=== PATIENT | male | born 1935 ===

== ENCOUNTER 2017-10-01 10:03 | Emergency (ER) | payer MEDICARE, OTHER ==
--- NOTE | 2017-10-01 10:13 | EDM.PDOC ---
ED HPI GENERAL MEDICAL PROBLEM - General Chief Complaint: Abdominal Pain Stated Complaint: SENT FROM [facility] Time Seen by Provider: 10/01/17 10:10 Source of Information: Reports: Patient History Limitations: Reports: No Limitations - History of Present Illness INITIAL COMMENTS - FREE TEXT/NARRATIVE: 81-year-old male presents to the ED with diffuse abdominal pain. He states he went to the clinic and [facility] yesterday because of abdominal pain and development of diarrhea. He had lab work carried out which did not become available to his practitioner Yvrose Pink until this morning. It identified a markedly elevated lipase of greater than 4700. Patient has had previous cholecystectomy and he drinks no alcohol. Concern therefore is from medication as a cause. He has not had any trauma to his abdomen to precipitate pancreatitis. To his knowledge never had hepatitis in the past. Denies any nausea vomiting in fact he's been able to eat fairly normally. Had only a banana however this morning. Diarrhea quit after taking one tablet of lumbar to yesterday. He has a history of antibiotic-induced colitis with C. difficile enteritis about 18 months ago. Patient is developing worsening dementia over the last year and recently had Namenda added to his treatment plan. Onset: Sudden Onset Date: 09/30/17 (Develop suddenly yesterday.) Onset Time: 07:00 Duration: Hour(s): Location: Reports: Abdomen (Upper abdomen above the umbilicus more in the epigastrium. Seems to radiate mildly through to his back.) Quality: Reports: Ache Severity: Moderate (H his pain as a 2 out of 10) Improves with: Reports: None Worsens with: Reports: Eating Context: Denies: Activity, Exercise, Lifting, Sick Contact, Trauma, Other Associated Symptoms: Reports: Cough, Loss of Appetite, Malaise. Denies: cough w sputum (Mild nonproductive cough), Diaphoresis, Fever/Chills, Headaches, Nausea/Vomiting, Rash, Seizure, Shortness of Breath, Syncope Treatments [employer]: Reports: Other (see below) (Only has normal medications.) - Related Data Allergies Allergy/AdvReac Type Severity Reaction Status Date / Time No Known Allergies Allergy Verified 10/01/17 10:09 Home Meds: Home Meds Multivitamin [Multivitamins] 1 tab PO DAILY 04/01/16 [History] Donepezil HCl [Aricept] 10 mg PO DAILY 10/01/17 [History] Memantine [Namenda] 5 mg PO DAILY 10/01/17 [History] Sertraline [Zoloft] 50 mg PO DAILY 10/01/17 [History] Past Medical History HEENT History: Reports: Impaired Vision Cardiovascular History: Reports: Other (See Below) Other Cardiovascular History: suppose to be evaluated for arthrosclerosis in [place] Dr. Enriquez for his Echo reading. on April 19 2016 Respiratory History: Reports: None Gastrointestinal History: Reports: Cholelithiasis Genitourinary History: Reports: None Musculoskeletal History: Reports: Other (See Below) Other Musculoskeletal History: elbow surgery after injury when younger Left elbow; hardware present Neurological History: Reports: None - Past Surgical History Musculoskeletal Surgical History: Reports: Other (See Below) Social & Family History - Family History Family Medical History: Noncontributory - Tobacco Use Smoking Status *Q: Never Smoker Second Hand Smoke Exposure: No - Caffeine Use Caffeine Use: Reports: None - Recreational Drug Use Recreational Drug Use: No - Living Situation & Occupation Living situation: Reports: , with Spouse Occupation: Retired ED ROS GENERAL - Review of Systems Review Of Systems: See Below Constitutional: Reports: Malaise, Fatigue, Decreased Appetite (States he lost 1 pound since his last visit to the doctor), Weight Loss. Denies: Fever, Chills HEENT: Reports: No Symptoms Respiratory: Reports: Shortness of Breath Cardiovascular: Reports: Dyspnea on Exertion (Chronically). Denies: Blood Pressure Problem, Claudication, Lightheadedness, Orthopnea Endocrine: Reports: Fatigue GI/Abdominal: Reports: Abdominal Pain, Decreased Appetite (History of present illness), Other (Normal stool today without blood.). Denies: Difficulty Swallowing, Distension, Flatus, Hematemesis, Hematochezia, Melena : Reports: Frequency, Other Musculoskeletal: Reports: Back Pain, Joint Pain (Knees hips and lower back at times) Skin: Reports: No Symptoms Neurological: Reports: No Symptoms Psychiatric: Reports: No Symptoms ED EXAM, GI/ABD - Physical Exam Exam: See Below Exam Limited By: No Limitations General Appearance: Alert, WD/WN, No Apparent Distress, Other (He answers all questions quite appropriately with no signs of confusion or short-term memory impairment.) Eyes: Bilateral: Normal Appearance (No jaundice.) Ears: Normal TMs Throat/Mouth: Normal Inspection, Normal Lips, Normal Oropharynx Head: Atraumatic, Normocephalic Neck: Normal Inspection, Supple, Non-Tender, Full Range of Motion. No: Lymphadenopathy (L), Lymphadenopathy (R) Respiratory/Chest: No Accessory Muscle Use, Chest Non-Tender, Respiratory Distress, Decreased Breath Sounds. No: Rales, Rhonchi, Wheezing Cardiovascular: Regular Rate, Rhythm, No Edema, No Gallop, No Murmur, No Rub. No: Normal Peripheral Pulses GI/Abdominal Exam: Normal Bowel Sounds, Soft, Non-Tender, No Organomegaly, No Mass, Pelvis Stable, Tender. No: Guarding, Rigid, Rebound Back Exam: Normal Inspection, Full Range of Motion. No: CVA Tenderness (L), CVA Tenderness (R) Extremities: Normal Inspection, Normal Range of Motion, Non-Tender, No Pedal Edema Neurological: Alert, Oriented, CN II-XII Intact, Normal Cognition Psychiatric: Normal Affect, Normal Mood Skin Exam: Warm, Dry, Intact, Normal Color, No Rash EKG INTERPRETATION EKG Date: 10/01/17 Time: 10:25 Rhythm: NSR Rate (Beats/Min): 61 [place]: Normal P-Wave: Present QRS: Other (Mildly decreased voltage in the limb leads.) ST-T: Other QT: Prolonged (QT is mildly prolonged.) EKG Interpretation Comments: Borderline ECG Course - Vital Signs Last Recorded V/S: Last Vital Signs Temp 36.3 C 10/01/17 10:16 Pulse 67 10/01/17 10:16 Resp 19 10/01/17 10:16 BP 133/75 10/01/17 10:16 Pulse Ox 99 10/01/17 10:16 - Orders/Labs/Meds Orders: Active Orders 24 hr Category Date Time Status EKG Documentation Completion [RC] STAT Care 10/01/17 10:11 Active Chest 1V Frontal [CR] Stat Exams 10/01/17 10:11 Taken Dextrose 5%-0.9% NaCl [Dextrose 5%-Normal Saline] 1,000 Med 10/01/17 10:15 Active ml IV ASDIRECTED Sodium Chloride 0.9% [Saline Flush] Med 10/01/17 12:46 Active 10 ml FLUSH ONETIME PRN Medication Orders Dextrose/Sodium Chloride (Dextrose 5%-Normal Saline) 1,000 mls @ 250 mls/hr IV ASDIRECTED JEREMIAH Last Admin: 10/01/17 10:49 Dose: 250 mls/hr Sodium Chloride (Saline Flush) 10 ml FLUSH ONETIME PRN PRN Reason: Keep Vein Open Last Admin: 10/01/17 13:00 Dose: 10 ml Labs: Laboratory Tests 10/01/17 10/01/17 10/01/17 Range/Units 10:30 10:30 10:30 WBC 8.23 (4.23-9.07) K/mm3 RBC 4.83 (4.63-6.08) M/mm3 Hgb 15.2 (13.7-17.5) gm/L Hct 43.5 (40.1-51.0) % MCV 90.1 (79.0-92.2) fl MCH 31.5 (25.7-32.2) pg MCHC 34.9 (32.2-35.5) g/dl RDW Std Deviation 42.4 (35.1-43.9) fL Plt Count 195 (163-337) K/mm3 MPV 9.5 (9.4-12.3) fl Neutrophils % (Manual) 77 H (40-60) % Band Neutrophils % 0 (0-10) % Lymphocytes % (Manual) 17 L (20-40) % Atypical Lymphs % 0 % Monocytes % (Manual) 5 (2-10) % Eosinophils % (Manual) 1 (0.8-7.0) % Basophils % (Manual) 0 L (0.2-1.2) Platelet Estimate Adequate Plt Morphology Comment Normal RBC Morph Comment Normal PT 11.3 (8.0-13.0) SECONDS INR 1.06 APTT 29 (22-36) SECONDS Sodium 140 (136-145) mEq/L Potassium 4.0 (3.5-5.1) mEq/L Chloride 104 (98-107) mEq/L Carbon Dioxide 26 (21-32) mEq/L Anion Gap 14.0 (5-15) BUN 26 H (7-18) mg/dL Creatinine 1.1 (0.7-1.3) mg/dL Est Cr Clr Drug Dosing 58.00 mL/min Estimated GFR (MDRD) > 60 (>60) mL/min BUN/Creatinine Ratio 23.6 H (14-18) Glucose 96 (83-115) mg/dL Calcium 9.1 (8.5-10.1) mg/dL Magnesium 2.1 (1.8-2.4) mg/dl Total Bilirubin 1.8 H (0.2-1.0) mg/dL GGT (15-85) U/L AST 66 H (15-37) U/L ALT 100 H (16-63) U/L Alkaline Phosphatase 112 (46-116) U/L CK-MB (CK-2) 1.4 (0-3.6) ng/ml Troponin I < 0.017 (0.00-0.056) ng/mL C-Reactive Protein 0.9 (<1.0) mg/dL NT-Pro-B Natriuret Pep (0-450) pg/mL Total Protein 7.2 (6.4-8.2) g/dl Albumin 3.8 (3.4-5.0) g/dl Globulin 3.4 gm/dL Albumin/Globulin Ratio 1.1 (1-2) Lipase 182 (73-393) U/L 10/01/17 10/01/17 Range/Units 10:30 10:30 WBC (4.23-9.07) K/mm3 RBC (4.63-6.08) M/mm3 Hgb (13.7-17.5) gm/L Hct (40.1-51.0) % MCV (79.0-92.2) fl MCH (25.7-32.2) pg MCHC (32.2-35.5) g/dl RDW Std Deviation (35.1-43.9) fL Plt Count (163-337) K/mm3 MPV (9.4-12.3) fl Neutrophils % (Manual) (40-60) % Band Neutrophils % (0-10) % Lymphocytes % (Manual) (20-40) % Atypical Lymphs % % Monocytes % (Manual) (2-10) % Eosinophils % (Manual) (0.8-7.0) % Basophils % (Manual) (0.2-1.2) Platelet Estimate Plt Morphology Comment RBC Morph Comment PT (8.0-13.0) SECONDS INR APTT (22-36) SECONDS Sodium (136-145) mEq/L Potassium (3.5-5.1) mEq/L Chloride (98-107) mEq/L Carbon Dioxide (21-32) mEq/L Anion Gap (5-15) BUN (7-18) mg/dL Creatinine (0.7-1.3) mg/dL Est Cr Clr Drug Dosing mL/min Estimated GFR (MDRD) (>60) mL/min BUN/Creatinine Ratio (14-18) Glucose (83-115) mg/dL Calcium (8.5-10.1) mg/dL Magnesium (1.8-2.4) mg/dl Total Bilirubin (0.2-1.0) mg/dL GGT 113 H (15-85) U/L AST (15-37) U/L ALT (16-63) U/L Alkaline Phosphatase (46-116) U/L CK-MB (CK-2) (0-3.6) ng/ml Troponin I (0.00-0.056) ng/mL C-Reactive Protein (<1.0) mg/dL NT-Pro-B Natriuret Pep 106 (0-450) pg/mL Total Protein (6.4-8.2) g/dl Albumin (3.4-5.0) g/dl Globulin gm/dL Albumin/Globulin Ratio (1-2) Lipase (73-393) U/L Meds: Medications Generic Name Dose Route Start Last Admin Trade Name Freq PRN Reason Stop Dose Admin Dextrose/Sodium Chloride 1,000 mls @ 250 mls/hr 10/01/17 10:15 10/01/17 10:49 Dextrose 5%-Normal Saline IV 250 mls/hr ASDIRECTED JEREMIAH Administration Sodium Chloride 10 ml 10/01/17 12:46 10/01/17 13:00 Saline Flush FLUSH 10 ml ONETIME PRN Administration Keep Vein Open Discontinued Medications Generic Name Dose Route Start Last Admin Trade Name Freq PRN Reason Stop Dose Admin Hydromorphone HCl 0.5 mg 10/01/17 10:49 10/01/17 11:28 Dilaudid IVPUSH 10/01/17 10:50 0.5 mg ONETIME ONE Administration Iopamidol 100 ml 10/01/17 12:47 10/01/17 13:00 Isovue-370 (76%) IVPUSH 10/01/17 12:48 100 ml ONETIME ONE Administration Metoclopramide HCl 5 mg 10/01/17 10:49 10/01/17 11:20 Reglan IVPUSH 10/01/17 10:50 5 mg ONETIME ONE Administration - Radiology Interpretation Free Text/Narrative:: 81-year-old male presents to the ED for evaluation of abdominal pain with associated diarrhea that developed yesterday morning. He was seen in the clinic by Paulette Suh in [facility] yesterday and had lab workup. All the labs are not available to her until this morning. Apparently identified and elevated lipase at 4750 this reason she contacted him and told him that he needs to come to [place] for definitive management and care. There is no reason for him to have developed acute pancreatitis. He has had previous cholecystectomy and he does not drink alcohol. No recent abdominal trauma. 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 Plan routine labs to be repeated. IV will be D5 normal saline at 150 mils per hour. Given Dilaudid 0.5 mg IV for pain relief with Reglan 5 mg IV for nausea relief. - Re-Assessments/Exams Free Text/Narrative Re-Assessment/Exam: 10/01/17 11:39 Labs are back revealing a white count of 8.23. Hemoglobin is 15.2 hematocrit is 43.5. Platelet count is 195,000. Differential is 77% neutrophils and no bands reported. PT is 11.3 with an INR 1.06. PTT is 29. Sodium is 140 with a potassium of 4.0. Chloride 104 with a bicarbonate of 26. And a gap is 14.0. BUN was 26 with a creatinine of 1.1. Glucose is 96. Calcium 9.1. Magnesium 2.1. Total bilirubin is elevated at 1.8. AST is 66 with an ALT of 100. Alk phosphatase is 112. CK-MB fraction 1.4. Troponin I is less than 0.017. C-reactive protein is 0.9. BNP is normal at 106. Lipase is normal today at 182. A GGT will be ordered. 10/01/17 13:47 CT scan of the abdomen was done with IV contrast only. Findings essentially are unchanged from previous CT done on April 01. There are intrahepatic and extrahepatic biliary duct dilation dictation this finding was noted on previous exam of the common bile duct measures about 1.1 cm in size which also appears fairly stable from previous exam surgical clips are evident from previous cholecystectomy pancreas shows no discrete abnormality. The liver shows no focal parenchymal abnormality spleen appears to be normal kidneys show symmetric contrast enhancement without hydronephrosis or mass. Several minimal cysts are seen within left kidney which are stable from previous exam. Aorta shows diffuse atherosclerotic change without aneurysmal dilatation. Atherosclerotic change continues down into the common iliac vessels. No retroperitoneal adenopathy or mesenteric abnormalities are seen. No pelvic mass or adenopathy is seen. Bone window settings reviewed stable compression deformity within the lumbar to vertebra. Diffuse degenerative changes again which appear previous similar to previous study. Patient will be therefore discharged to home. I will have him have repeat labs done at the clinic in [place] on Tuesday in regards to his liver function making sure that his bilirubin returns to normal. Note the GGT was 113 which is minimally elevated with normal being up to 85 lab. Patient will be discharged to home. I will have him follow- up in [place] clinic on Tuesday or Tuesday for repeat liver function studies to make sure that his bilirubin and transaminases returned to normal values. Departure - Departure Time of Disposition: 13:54 Disposition: Home, Self-Care 01 Condition: Fair Clinical Impression: Abdominal pain Qualifiers: Abdominal location: left upper quadrant Qualified Code(s): R10.12 - Left upper quadrant pain - Discharge Information Referrals: Ellyn Pink PA-C [Primary Care Provider] - Forms: ED Department Discharge Additional Instructions: Evaluation the emergent today in regards to abnormal blood tests identified at [facility] yesterday. When Yvrose did do lab work portably was looking at your pancreas and the lipase returned this morning markedly elevated at 103, 000. If I'm not mistaken I was told 4700. She therefore contacted you to come to the ED for further evaluation. As you discussed you did have diffuse left upper quadrant and epigastric abdominal pain when he went to see her for this subsequently has resolved. He also had short-lived diarrhea again this appears to have resolved. Gallbladder has been previously removed. Lab work done today revealed some slight elevation of the liver enzymes and a bilirubin of 1.8. These numbers are mildly elevated suggesting possibility of passage of sludge or stone yesterday. The pancreas enzyme came back in the normal range at 182. Therefore there is no evidence of pancreatitis at this time. CT of the abdomen and pelvis was performed to make sure there was no other pathology around the head of the pancreas or involvement of the common bile duct which drains the liver and pancreas. And compared to one done in March 2016 is unchanged. No abnormalities were identified within the liver, bile duct or the pancreas itself. I would like you to check in with Yvrose next week on Tuesday or Tuesday to have repeat lab tests done mostly in regards to liver function make sure that it is returned to normal status. You're free to eat and drink whatever you please at this time and to continue all current medications. - My Orders Last 24 Hours: My Active Orders 10/01/17 10:11 EKG Documentation Completion [RC] STAT Chest 1V Frontal [CR] Stat 10/01/17 10:15 Dextrose 5%-0.9% NaCl [Dextrose 5%-Normal Saline] 1,000 ml IV ASDIRECTED 10/01/17 12:46 Sodium Chloride 0.9% [Saline Flush] 10 ml FLUSH ONETIME PRN - Assessment/Plan Last 24 Hours: My Active Orders 10/01/17 10:11 EKG Documentation Completion [RC] STAT Chest 1V Frontal [CR] Stat 10/01/17 10:15 Dextrose 5%-0.9% NaCl [Dextrose 5%-Normal Saline] 1,000 ml IV ASDIRECTED 10/01/17 12:46 Sodium Chloride 0.9% [Saline Flush] 10 ml FLUSH ONETIME PRN
[2017-10-01] MEDS ORDERED: Dextrose 5%-0.9% NaCl 1,000 ML IV SCH (10:15)
[2017-10-01 10:20] VITALS: BP 133/75
[2017-10-01] MEDS ORDERED: Metoclopramide 10 MG/2 ML SDV IVPUSH ONE (10:49)
[2017-10-01] MEDS ORDERED: HYDROmorphone 0.5 MG/0.5 ML SYRINGE IVPUSH ONE (10:49)
[2017-10-01] MEDS ORDERED: Sodium Chloride 0.9% 10 ML Syringe FLUSH PRN (12:46)
[2017-10-01] MEDS ORDERED: Iopamidol 612 MG/ML 150 ML Bottle IVPUSH ONE (12:46)
[2017-10-01] MEDS ORDERED: Iopamidol 755 Mg/ML 100 ML Bottle IVPUSH ONE (12:47)
--- NOTE | 2017-10-01 13:23 | CT ---
CT abdomen and pelvis Technique: Multiple axial sections were obtained from above the dome of the diaphragm inferiorly through the pubic symphysis. Intravenous contrast was given. Delayed images were also obtained through the pelvis. No oral contrast has been given. Comparison: Prior CT abdomen and pelvis exam of 04/01/16 is available. Findings: Intrahepatic and extrahepatic biliary duct dilatation is seen. This finding is noted on previous exam. Common bile duct measures 1.1 cm in size which also appears fairly stable from previous exam. Surgical clips are seen from prior cholecystectomy. Pancreas shows no discrete abnormality. Liver shows no focal parenchymal abnormality. Spleen appears within normal limits. Kidneys show symmetric contrast enhancement without hydronephrosis or mass. Several minimal cysts are seen within the left kidney which are stable from previous exam. Aorta shows atherosclerotic change without aneurysmal dilatation. Atherosclerotic change continues into the common iliac vessels. No retroperitoneal adenopathy or mesenteric abnormalities are seen. No pelvic mass or adenopathy is seen. Delayed images shows contrast within the distal ureters and within the bladder. Incidental sigmoid diverticuli are seen. Bone window settings were reviewed which shows stable compression deformity within L2. Diffuse degenerative changes seen which appear similar to previous study. Impression: 1. Intrahepatic and extrahepatic biliary duct dilatation. Evidence of prior cholecystectomy. These findings are fairly stable from prior CT exam. Given the elevated bilirubin, MRCP could be considered to further evaluate. 2. Other incidental findings as noted above which are also stable. Diagnostic code #3
--- NOTE | 2017-10-01 15:44 | CR ---
Chest: Portable view of the chest was obtained. Comparison: Prior chest x-ray of 04/01/16. Heart size is normal. Tortuous thoracic aorta is seen. Lungs are clear. Degenerative change is noted within both shoulders as well as degenerative spurring within the spine. Minimal scoliosis is noted. Impression: 1. Incidental findings. Nothing acute is appreciated on portable chest x-ray. Diagnostic code #2
== END 2017-10-01 14:25 | disposition home or self-care (01) ==
LOC: JD.ED 10:03
DX: R10.12 Left upper quadrant pain (principal); Z79.899 Other long term (current) drug therapy
CPT/HCPCS: 36415; 71045; 74177; 80053; 82553; 82977; 83690; 83735; 83880; 84484; 85025; 85610; 85730; 86140; 93005; 96361; 96374; 96375; 99285; J1170; J2765; J7042; J7050; Q9967; 93010; 99284-25